=== PATIENT | female | born 1950 | race Caucasian/White ===

== ENCOUNTER 2024-01-22 13:36 | Emergency (ER) | payer OTHER ==
[~2024-01-22] VITALS: Ht 157.5 cm; Wt 86.2 kg
[2024-01-22 14:57] VITALS: BP 134/68; PULSE 59; RESP 18; TEMP 98.1; O2SAT 95
== END 2024-01-22 15:41 | disposition home or self-care (01) ==
LOC: ER 13:36
DX: S01.511A Laceration without foreign body of lip, initial encounter (principal); S63.591A Other specified sprain of right wrist, initial encounter; I10 Essential (primary) hypertension; F32.9 Major depressive disorder, single episode, unspecified; Z88.0 Allergy status to penicillin; W18.39XA Other fall on same level, initial encounter; Y93.01 Activity, walking, marching and hiking; Y92.89 Other specified places as the place of occurrence of the external cause; Y99.8 Other external cause status
CPT/HCPCS: 73110